=== PATIENT | female | born 1985 | race Caucasian/White ===

== ENCOUNTER 2024-01-08 08:07 | Emergency (ER) | payer MEDICAID, SELFPAY ==
[2024-01-08 08:13] VITALS: BP 131/71; PULSE 70; TEMP 36.4; O2SAT 99; BMI 24.7
--- NOTE | 2024-01-08 08:28 | CT_ITS ---
[address] [address] Patient Name: HOLLY WOOTEN MRN: [id number] date: 1985 Sex: F Assigned Patient Location: ER Current Patient Location: ER Accession/Order Number: [id number] Exam Date: 01/08/2024 08:52 Report Date: 01/08/2024 09:35 At the request of: GURMEET DAO Procedure: CT abdomen pelvis wo con EXAMINATION: CT abdomen pelvis wo con HISTORY: lower abd pain , abnormal vaginal bleeding for one month, dysuria COMPARISON: No relevant comparison available. TECHNIQUE: Axial, Coronal, and Sagittal images were obtained without and/or with IV contrast as indicated by examination type. Dose reduction techniques were achieved by using automated exposure control and/or adjustment of mA and/or kV according to patient size and/or use of iterative reconstruction technique. FINDINGS: LUNG BASES: No visible pulmonary or pleural disease. LIVER: No enlargement, atrophy, suspicious density, or significant focal lesion. BILIARY: No dilatation or calcification. PANCREAS: No lesion, fluid collection, or abnormal duct dilatation. SPLEEN: No enlargement or focal lesion. ADRENALS: No mass or enlargement. KIDNEYS: No convincing urinary tract calculi, obstructive uropathy, or appreciable mass. The 3 mm calcification within the left pelvis suspected to be adjacent the ureter. BOWEL/MESENTERY: No visible mass, obstruction, or bowel wall thickening. Normal appendix. AORTA/VASCULAR: No aneurysm or dissection. RETROPERITONEUM: No mass or adenopathy. LYMPH NODES: No adenopathy. URINARY BLADDER: No visible focal wall thickening, lesion, or calculus. PELVIC ORGANS: 1.6 cm right ovarian cyst. No visible mass. Pelvic organs appropriate for patient age. ABDOMINAL WALL: No mass or hernia. BONES: No bony lesion or fracture. OTHER: Negative. CT/CT abdomen pelvis wo con IMPRESSION: 1. No convincing urinary tract calculi, obstructive uropathy, or inflammatory changes. 2. No acute or specific findings to account for patient's symptoms. 3. Right ovary contains a 1.6 cm cyst of questionable clinical significance. Electronically authenticated by: SCOTT HALL Date: 01/08/2024 09:35
--- NOTE | 2024-01-08 08:28 | ED.GENADUL1 ---
HPI HPI - General Adult General Chief complaint: Urogenital-Female Stated complaint: ABDOMINAL PAIN Time Seen by Provider: 01/08/24 08:18 Source: patient Mode of arrival: walk-in History of Present Illness HPI narrative: Patient complains of bilateral lower abdominal pain and intermittent burning with urination. She also has been having persistent vaginal bleeding for the past month. She saw a mental tester and was placed on hromone therapy almost two years ago because of irregular vaginal bleeding. She has not seen a [facility] Operator for this. Today she complains of suprapubic pain and pain to both sides of the abdomen. no nausea, vomiting or diarrhea. Related Data Previous Rx's ?Medication ?Instructions ?Recorded medroxyprogesterone 10 mg tablet 10 mg PO DAILY 10 days #10 tabs 01/08/24 (Provera) Allergies Allergy/AdvReac Type Severity Reaction Status Date / Time No Known Drug Allergies Allergy Verified 01/08/24 08:15 Opioid HPI Opioid Management Most Recent Opioid Data: No Data to Display Exam Narrative Exam Narrative: Nurses notes and vital signs reviewed and patient is not hypoxic. afebrile General: Well-appearing and in no apparent distress. Skin: Warm, dry, no pallor noted. No rash. Eye: Pupils are equal, round and EOMI. No scleral icterus. Cardiovascular: Regular Rate and Rhythm without murmur, gallop or rub. Respiratory: No accessory muscle use or respiratory distress. Lungs are clear to auscultation, no wheezing, rales or rhonchi Back: No midline thoracic or lumbar vertebral tenderness. No CVA tenderness Musculoskeletal: normal ROM, no calf or popliteal tenderness, no lower extremity edema/swelling GI: Abdomen is soft, non-distended. Normal bowel sounds. No masses appreciated. Suprapubic and LLQ tenderness to palpation. No rebound, guarding, or rigidity noted. Neurological: A&O x4. No cranial nerve dysfunction observed. No truncal ataxia. Moves all extremities. Sensation intact. Psychiatric: Cooperative and interactive. Normal mood and affect. Constitutional Vital Signs, click to edit/add: Last Vital Signs Temp 97.5 F L 01/08/24 08:13 Pulse 70 01/08/24 08:13 Resp 20 01/08/24 08:13 BP 131/71 01/08/24 08:13 Pulse Ox 99 01/08/24 08:13 Course Vital Signs Vital signs: Vital Signs Temperature 97.5 F L 01/08/24 08:13 Pulse Rate 70 01/08/24 08:13 Respiratory Rate 20 01/08/24 08:13 Blood Pressure 131/71 01/08/24 08:13 Pulse Oximetry 99 01/08/24 08:13 Temperature 97.5 F L 01/08/24 08:13 Pulse Rate 70 01/08/24 08:13 Respiratory Rate 20 01/08/24 08:13 Blood Pressure 131/71 01/08/24 08:13 Pulse Oximetry 99 01/08/24 08:13 Medical Decision Making MDM Narrative Medical decision making narrative: Blood and urine obtained and sent for testing. She was also ordered to undergo CT scanning of the abdomen pelvis. Blood work was unremarkable. Patient has normal white blood cell count, normal hemoglobin at 12, normal electrolytes and renal function, negative urinalysis. CT scan of the abdomen pelvis does not show any convincing urinary tract calculi, obstructive uropathy or inflammatory changes. No pelvic abnormality other than a 1.6 cm right ovarian cyst. No visible masses or other pelvic abnormalities were noted by the radiologist. Patient informed of results. With her permission I reached out to Dr Keen, who she will be referred to for follow up, to discuss starting the patient on provera 10mg daily. He agreed with that plan and the patient was discharged home. Lab Data Lab results reviewed: Yes I reviewed the patient's lab results Labs: Lab Results 01/08/24 01/08/24 01/08/24 Range/Units 08:30 08:37 09:45 WBC 7.1 (4.0-11.0) 10^3/uL RBC 4.33 (4.20-5.40) 10^6/uL Hgb 12.3 (12.0-16.0) g/dL Hct 37.3 (36.0-48.0) % MCV 86.1 (81.0-99.0) fL MCH 28.4 (26.7-34.0) pg MCHC 33.0 (29.9-35.2) g/dL RDW 12.1 (11.0-15.0) % Plt Count 324 (150-450) 10^3/uL MPV 9.6 (9.5-13.5) fL Neut % (Auto) 65.4 (43.0-75.0) % Lymph % (Auto) 27.8 (20.5-60.0) % [place] % (Auto) 5.2 (1.7-12.0) % Eos % (Auto) 0.3 L (0.9-7.0) % Baso % (Auto) 1.0 (0.2-2.0) % Neut # (Auto) 4.6 (1.4-6.5) 10^3/uL Lymph # (Auto) 2.0 (1.2-3.8) 10^3/uL [place] # (Auto) 0.4 (0.3-0.8) 10^3/uL Eos # (Auto) 0.0 (0.0-0.7) 10^3/uL Baso # (Auto) 0.1 (0.0-0.1) 10^3/uL Abs Immat Gran (auto) 0.02 (0.00-0.03) 10^3/uL Imm/Tot Granulo (auto) 0.3 (0.0-0.5) % PT 10.9 (9.0-11.6) sec INR 1.03 APTT 25.4 (22.3-36.2) sec Sodium 142 (136-145) mmol/L Potassium 3.7 (3.5-5.1) mmol/L Chloride 105 (98-107) mmol/L Carbon Dioxide 25.8 (21.0-32.0) mmol/L Anion Gap 14.9 BUN 11.0 (7.0-18.0) mg/dL Creatinine 0.90 (0.55-1.02) mg/dL Est GFR ( Amer) >60 (>=60) Est GFR (Non-Af Amer) >60 (>=60) BUN/Creatinine Ratio 12.2 Glucose 128 H (74-106) mg/dL Calcium 9.3 (8.5-10.1) mg/dL Total Bilirubin 0.5 (0.2-1.0) mg/dL AST 13 L (15-37) U/L ALT 21 (14-59) U/L Alkaline Phosphatase 45 L (46-116) U/L Total Protein 7.0 (6.4-8.2) g/dL Albumin 3.9 (3.4-5.0) g/dL Globulin 3.1 g/dL Albumin/Globulin Ratio 1.3 Serum HCG, Qual Negative (NEGATIVE) Urine Color Lt. yellow (YELLOW) Urine Clarity Clear (CLEAR) Urine pH 6.0 (5.0-9.0) Ur Specific Wright 1.010 (1.005-1.025) Urine Protein Negative (NEG/TRACE) mg/dL Urine Glucose (UA) Negative (NEGATIVE) mg/dL Urine Ketones Negative (NEGATIVE) mg/dL Urine Occult Blood Negative (NEGATIVE) Urine Nitrite Negative (NEGATIVE) Urine Bilirubin Negative (NEGATIVE) Urine Urobilinogen 0.2 (0.2-1.0) EU/dL Ur Leukocyte Esterase Negative (NEGATIVE) Imaging Data CT scan - abdomen: Attestation: I have reviewed the pertinent imaging results. Radiologist's impression: ITS Impressions Abdomen/Pelvis CT 01/08/24 08:28 IMPRESSION: 1. No convincing urinary tract calculi, obstructive uropathy, or inflammatory changes. 2. No acute or specific findings to account for patient's symptoms. 3. Right ovary contains a 1.6 cm cyst of questionable clinical significance. Electronically authenticated by: SCOTT HALL Date: 01/08/2024 09:35 Discharge Plan Discharge Stand Alone Forms: Portal Instructions Chief Complaint: Urogenital-Female Clinical Impression: Dysfunctional uterine bleeding, Abdominal pain, Ovarian cyst, right Patient Disposition: Home, Self-Care Time of Disposition Decision: 09:46 Prescriptions / Home Meds: New medroxyprogesterone [Provera] 10 mg tablet 10 mg PO DAILY 10 Days Qty: 10 0RF Print Language: Latvian Instructions: Abnormal (Dysfunctional) Uterine Bleeding (ED), Ovarian Cyst (ED), Abdominal Pain (ED) Referrals: Andre Keen DO [Physician] - As soon as possible Discharge Date/Time: 01/08/24 10:03
[2024-01-08 08:50] LABS: Bilirubin Urine NEGATIVE (NEGATIVE); Blood Urine NEGATIVE (NEGATIVE); Clarity Urine CLEAR (CLEAR); Color Urine LT. YELLOW (YELLOW); Glucose Urine UA NEGATIVE (NEGATIVE); Ketones Urine NEGATIVE (NEGATIVE); Leukocyte Esterase Urine NEGATIVE (NEGATIVE); Nitrite Urine NEGATIVE (NEGATIVE); Protein Urine NEGATIVE (NEG/TRACE); Urobilinogen Urine 0.2 EU/dL (0.2-1.0)
[2024-01-08 08:51] LABS: Basophils Absolute Auto 0.1 10^3/uL (0.0-0.1); Eosinophils Percent Auto 0.3 % (0.9-7.0); Hematocrit 37.3 % (36.0-48.0); Hemoglobin 12.3 g/dL (12.0-16.0); Immature Granulocytes Abs Auto 0.02 10^3/uL (0.00-0.03); Immature Granulocytes Pct Auto 0.3 % (0.0-0.5); Lymphocytes Percent Auto 27.8 % (20.5-60.0); Mean Corpuscular Hemoglobin 28.4 pg (26.7-34.0); Mean Corpuscular Volume 86.1 fL (81.0-99.0); Mean Platelet Volume 9.6 fL (9.5-13.5); Monocytes Absolute Auto 0.4 10^3/uL (0.3-0.8); Monocytes Percent Auto 5.2 % (1.7-12.0); Neutrophils Absolute Auto 4.6 10^3/uL (1.4-6.5); Neutrophils Percent Auto 65.4 % (43.0-75.0); Platelet Count 324 10^3/uL (150-450); Red Blood Count 4.33 10^6/uL (4.20-5.40); Red Cell Distribution Width 12.1 % (11.0-15.0); White Blood Count 7.1 10^3/uL (4.0-11.0)
[2024-01-08 08:52] LABS: Urine Microscopic Indicated NO
[2024-01-08 09:01] LABS: INR 1.03; Prothrombin Time 10.9 sec (9.0-11.6)
[2024-01-08 09:05] LABS: Alanine Aminotransferase 21 U/L (14-59); Albumin Globulin Ratio 1.3; Albumin Level 3.9 g/dL (3.4-5.0); Alkaline Phosphatase 45 U/L (46-116); Anion Gap 14.9; Aspartate Amino Transferase 13 U/L (15-37); BUN Creatinine Ratio 12.2; Bilirubin Total 0.5 mg/dL (0.2-1.0); Calcium 9.3 mg/dL (8.5-10.1); Carbon Dioxide 25.8 mmol/L (21.0-32.0); Chloride 105 mmol/L (98-107); Estimated GFR (African America >60 (>=60); Estimated GFR (Non-African Ame >60 (>=60); Globulin 3.1 g/dL; Glucose 128 mg/dL (74-106); Potassium 3.7 mmol/L (3.5-5.1); Sodium 142 mmol/L (136-145)
[2024-01-08 09:14] LABS: HCG Qualitative NEGATIVE (NEGATIVE)
[2024-01-08 10:10] LABS: Partial Thromboplastin Time 25.4 sec (22.3-36.2)
== END 2024-01-08 10:03 | disposition home or self-care (01) ==
PROVIDERS: Emergency Provider Emergency Medicine
DX: R10.9 Unspecified abdominal pain (principal); N83.201 Unspecified ovarian cyst, right side; N93.8 Other specified abnormal uterine and vaginal bleeding
CPT/HCPCS: 36415; 74176; 80053; 81003; 84703; 85025; 85610; 85730; 99284